=== PATIENT | male | born 1995 | race Caucasian/White ===

== ENCOUNTER 2018-11-04 11:28 | Emergency (ER) | payer OTHER ==
[2018-11-04] MEDS ORDERED: methylPREDNISolone Sodium Succinate 125 MG/2 ML SDV IVPUSH ONE (13:27)
--- NOTE | 2018-11-04 13:42 | EDM.PDOC ---
ED HPI GENERAL MEDICAL PROBLEM - General Chief Complaint: Upper Extremity Injury/Pain Stated Complaint: INFECTION IN ELBOW Time Seen by Provider: 11/04/18 12:25 Source of Information: Reports: Patient, Police History Limitations: Reports: No Limitations - History of Present Illness INITIAL COMMENTS - FREE TEXT/NARRATIVE: 23-year-old male with right elbow pain and swelling. He was seen in the clinic yesterday, the bursitis was aspirated and a culture initiated. I reviewed the records and the Gram stain showed white cells but no bacteria. He feels it's not improving despite oral Bactrim. Onset: Sudden Duration: Day(s): (Symptoms for 2 days) Location: Reports: Upper Extremity, Right Associated Symptoms: Denies: Fever/Chills, Headaches, Loss of Appetite, Malaise , Nausea/Vomiting - Related Data Allergies Allergy/AdvReac Type Severity Reaction Status Date / Time No Known Allergies Allergy Verified 11/04/18 12:09 Home Meds: Home Meds Sulfamethoxazole/Trimethoprim [Sulfamethoxazole-Tmp Ds Tablet] 1 tab PO BID [History] traMADol [Ultram] 1 tab PO BEDTIME 11/04/18 [History] Past Medical History Neurological History: Reports: Concussion Social & Family History - Caffeine Use Caffeine Use: Reports: Coffee - Recreational Drug Use Recreational Drug Use: No Review of Systems - Review of Systems Review Of Systems: See Below Constitutional: Denies: Fever Eyes: Reports: No Symptoms Mouth/Throat: Reports: No Symptoms Respiratory: Reports: No Symptoms Cardiovascular: Reports: No Symptoms GI/Abdominal: Reports: No Symptoms Skin: Reports: Erythema Neurological: Denies: Paresthesia ED EXAM, GENERAL - Physical Exam Exam: See Below Exam Limited By: No Limitations General Appearance: Alert, No Apparent Distress Head: Atraumatic Respiratory/Chest: No Respiratory Distress Cardiovascular: Regular Rate, Rhythm Extremities: Other (Exam is otherwise limited to the right arm. He does have some fluctuance about the olecranon bursa with some erythema and slight warmth. He is able to actively and passively and the arm to 90 without significant difficulty.) Course - Vital Signs Last Recorded V/S: Last Vital Signs Temp 95.2 F L 11/04/18 12:20 Pulse 78 11/04/18 12:20 Resp 16 11/04/18 12:20 BP 129/83 11/04/18 12:20 Pulse Ox 97 11/04/18 12:20 - Orders/Labs/Meds Labs: Laboratory Tests 11/04/18 11/04/18 Range/Units 12:45 12:45 WBC 10.2 (4.5-11.0) K/uL RBC 4.27 L (4.30-5.90) M/uL Hgb 13.1 (12.0-15.0) g/dL Hct 39.3 L (40.0-54.0) % MCV 92 (80-98) fL MCH 31 (27-31) pg MCHC 33 (32-36) % Plt Count 173 (150-400) K/uL Neut % (Auto) 68 H (36-66) % Lymph % (Auto) 19 L (24-44) % Sherman % (Auto) 12 H (2-6) % Eos % (Auto) 1 L (2-4) % Baso % (Auto) 0 (0-1) % C-Reactive Protein 8.19 H (0.0-0.3) mg/dL Meds: Medications Discontinued Medications Generic Name Dose Route Start Last Admin Trade Name Freq PRN Reason Stop Dose Admin Meropenem 1 gm/ Sodium 50 mls @ 100 mls/hr 11/04/18 13:41 11/04/18 13:58 Chloride IV 11/04/18 14:10 100 mls/hr ONETIME ONE Administration Methylprednisolone Sodium Succinate 125 mg 11/04/18 13:27 11/04/18 13:58 Solu-Medrol IVPUSH 11/04/18 13:28 125 mg ONETIME ONE Administration - Re-Assessments/Exams Free Text/Narrative Re-Assessment/Exam: 11/04/18 14:17 Reviewed the clinic records, the olecranon fluid was examined and there were PMNs but no organisms identified at this time. CRP was normal and white count was normal. The patient remains afebrile but his CRP was rechecked today. It did return elevated at 7. An IV was started, the patient was given 1 g of meropenem IV and will return for the next 5 days for twice daily doses and then recheck on Thursday with orthopedics. He was also given 125 mg of IV Solu-Medrol. He'll also continue his Bactrim. Departure - Departure Time of Disposition: 14:57 Disposition: Home, Self-Care 01 Clinical Impression: Olecranon bursitis of right elbow - Discharge Information Instructions: Elbow Bursitis, [id number] Referrals: PCP,None [Primary Care Provider] - Forms: ED Department Discharge Care Plan Goals: Continue with your Bactrim and anti-inflammatories and pain control as needed. Return twice daily, morning and evening, through the weekend for IV antibiotics. Plan is still to have a recheck with orthopedics on Thursday unless not improving satisfactorily.
== END 2018-11-04 14:59 | disposition home or self-care (01) ==
LOC: JP.ED 11:28
DX: M70.21 Olecranon bursitis, right elbow (principal); Z79.899 Other long term (current) drug therapy
CPT/HCPCS: 36415; 85025; 86140; 96374; 99283; J2185; J2930; J7050